=== PATIENT | male | born 1940 | race Hispanic/Latino ===

== ENCOUNTER 2019-08-28 10:39 | Outpatient (CLI) | payer MEDICARE, OTHER ==
--- NOTE | 2019-08-28 12:45 | Ultrasound Report ---
Chest Ultrasound HISTORY: Left chest wall mass. COMPARISON: None available. FINDINGS: Targeted ultrasound evaluation of left lateral chest wall in the region of reported mass wa s performed. There is no suspicious solid or cystic lesion. No evidence of skin thickening. A few rib s are noted in this region and could correspond the reported mass in this region. IMPRESSION: No sonographic evidence of mass along the left lateral chest wall. There are a few ribs in this region which may explain the palpable finding. Recommend clinical correl ation. If indicated, a CT may be considered for further evaluation. Signer Name: Vinayak Sams MD Signed: 08/28/2019 12:41 PM Workstation Name: [id number]
== END 2019-08-28 10:40 | disposition home or self-care (01) ==
LOC: US 10:39
PROVIDERS: ATTEND Surgery
DX: R22.2 Localized swelling, mass and lump, trunk (principal)
CPT/HCPCS: 76604